=== PATIENT | female | born 1990 | race Caucasian/White ===

== ENCOUNTER 2016-10-08 11:38 | Emergency (ER) | payer MEDICAID, OTHER ==
[~2016-10-08] VITALS: Ht 167.6 cm; Wt 50.0 kg
[2016-10-08 11:39] VITALS: BP 135/75; PULSE 129; RESP 14; TEMP 98.3; O2SAT 99
[2016-10-08] MEDS ORDERED: SODIUM CHLOR 0.9% 1000 ML INJ 1,000 ML IV SCH (12:09)
[2016-10-08] MEDS ORDERED: LORazepam 2 MG/ML VIAL IV PUSH ONE (12:15)
[2016-10-08] MEDS ORDERED: SODIUM CHLORIDE 0.9% FLUSH 5 ML FLUSH IVF PRN (12:15)
[2016-10-08] MEDS ORDERED: CLINDAMYCIN INJ 900 MG in SODIUM CHLORIDE 0.9% INJ 100 ML IV ONE (12:15)
[2016-10-08 12:30] LABS: AUTOMATED NEUTROPHIL # 12.4 TH/MM3 (1.8-7.7); BASOPHIL # 0.1 TH/MM3 (0-0.2); BASOPHIL % 0.4 % (0.0-2.0); EOSINOPHIL # 0.2 TH/MM3 (0-0.4); EOSINOPHIL % 1.4 % (0.0-4.0); HEMATOCRIT 36.8 % (35.0-46.0); HEMO FLAGS DIFF FINAL; LYMPH % 20.6 % (9.0-44.0); LYMPHOCYTE # 3.6 TH/MM3 (1.0-4.8); MEAN CELL VOLUME 86.2 FL (80.0-100.0); MEAN CORPUSCULAR HEMOGLOBIN 29.2 PG (27.0-34.0); MEAN CORPUSCULAR HGB CONC 33.9 % (32.0-36.0); MONO % 6.2 % (0.0-8.0); NEUT % 71.4 % (16.0-70.0); PLATELET COUNT 343 TH/MM3 (150-450); RED BLOOD COUNT 4.27 MIL/MM3 (4.00-5.30); RED CELL DISTRIBUTION WIDTH 13.9 % (11.6-17.2); WHITE BLOOD COUNT 17.3 TH/MM3 (4.0-11.0)
--- NOTE | 2016-10-08 12:32 | PD ---
HPI Chief Complaint: Skin Problem Time Seen by Provider: 12:12 Travel History International Travel<30 days: No Contact w/Intl Traveler<30days: No Traveled to known affect area: No History of Present Illness HPI 26-year-old female with history of IV drug use comes in with 2 day history of right arm pain, swelling, and erythema. Patient abuses cocaine, heroin and hydromorphone IV. Patient denies fever, chills, or other constitutional symptoms. Patient was here about a month ago with similar concerns and presentation. Patient states the pain was worse this morning but she used cocaine and some hydromorphone this morning. Pain is now minimal. Patient was given a tetanus shot at that time. She has no known drug allergies. PFSH Past Medical History Anxiety: No Depression: No Cancer: No Cardiovascular Problems: No Endocrine: No Genitourinary: No Immune Disorder: No Implanted Vascular Access Dvce: No Musculoskeletal: No Neurologic: No Psychiatric: No Reproductive: No Respiratory: No Immunizations Current: Yes Seizures: Yes (withdrawl induced ) Influenza Vaccination: No ?: Not : 2 Para: 1 : 1 Past Surgical History Abdominal Surgery: Yes Section: Yes Other Surgery: Yes Social History Alcohol Use: No Tobacco Use: Yes (09/14 PPD) Substance Use: Yes (HEROIN, DILAUDID (iv drug abuser)) Allergies-Medications (Allergen,Severity, Reaction): Coded Allergies: No Known Allergies (Verified , 10/08/16) Reported Meds & Prescriptions Reported Meds & Active Scripts Active No Active Prescriptions or Reported Medications Review of Systems Except as stated in HPI: all other systems reviewed are Neg General / Constitutional: No: Fever Eyes: No: Visual changes HENT: No: Headaches Cardiovascular: No: Chest Pain or Discomfort Respiratory: No: Shortness of Breath Gastrointestinal: No: Abdominal Pain Genitourinary: No: Dysuria Musculoskeletal: No: Pain Skin: Positive Lesions (see history present illness.), No Rash Neurologic: No: Weakness Psychiatric: No: Depression Endocrine: No: Polydipsia Hematologic/Lymphatic: No: Easy Bruising Physical Exam Narrative GENERAL: Patient is anxious and jittery, but no acute distress. SKIN: Warm and dry. Patient has multiple puncture wounds to the right dorsal forearm consistent with her IV drug use history. There is lymphangitis and erythema along the volar surface of the right forearm, without signs of abscess or drainage. There is no significant lymphadenopathy in the epitrochlear or axillary nodes on the right. HEAD: Atraumatic. Normocephalic. EYES: Pupils equal and round. No scleral icterus. No injection or drainage. ENT: No nasal bleeding or discharge. Mucous membranes pink and moist. NECK: Trachea midline. No JVD. CARDIOVASCULAR: Regular rate and rhythm. RESPIRATORY: No accessory muscle use. Clear to auscultation. Breath sounds equal bilaterally. MUSCULOSKELETAL: Extremities without clubbing, cyanosis, or edema. No obvious deformities. NEUROLOGICAL: Awake and alert. No obvious cranial nerve deficits. Motor grossly within normal limits. Five out of 5 muscle strength in the arms and legs. Normal speech. PSYCHIATRIC: Appropriate mood and affect; insight and judgment normal. Data Data Last Documented VS Vital Signs Date Time Temp Pulse Resp B/P Pulse Ox O2 Delivery O2 Flow Rate FiO2 10/08/16 11:39 98.3 129 14 135/75 99 Room Air Orders Complete Blood Count With Diff (10/08/16 12:09) Blood Culture (10/08/16 12:09) Iv Access Insert/Monitor (10/08/16 12:09) Sodium Chloride 0.9% Flush (Ns Flush) (10/08/16 12:15) Clindamycin Inj (Cleocin Inj) (10/08/16 12:15) Comprehensive Metabolic Panel (10/08/16 12:09) Lactic Acid (10/08/16 12:09) Prothrombin Time / Inr (Pt) (10/08/16 12:09) Act Partial Throm Time (Ptt) (10/08/16 12:09) Urinalysis - C+S If Indicated (10/08/16 12:09) Sodium Chlor 0.9% 1000 Ml Inj (Ns 1000 M (10/08/16 12:09) Electrocardiogram (10/08/16 12:09) Ed Urine Pregnancytest Poc (10/08/16 12:09) Lorazepam Inj (Ativan Inj) (10/08/16 12:15) Urine Culture (10/08/16 12:48) Labs Laboratory Tests Test 10/08/16 10/08/16 12:16 12:48 White Blood Count 17.3 TH/MM3 Red Blood Count 4.27 MIL/MM3 Hemoglobin 12.5 GM/DL Hematocrit 36.8 % Mean Corpuscular Volume 86.2 FL Mean Corpuscular Hemoglobin 29.2 PG Mean Corpuscular Hemoglobin 33.9 % Concent Red Cell Distribution Width 13.9 % Platelet Count 343 TH/MM3 Mean Platelet Volume 7.3 FL Neutrophils (%) (Auto) 71.4 % Lymphocytes (%) (Auto) 20.6 % Monocytes (%) (Auto) 6.2 % Eosinophils (%) (Auto) 1.4 % Basophils (%) (Auto) 0.4 % Neutrophils # (Auto) 12.4 TH/MM3 Lymphocytes # (Auto) 3.6 TH/MM3 Monocytes # (Auto) 1.1 TH/MM3 Eosinophils # (Auto) 0.2 TH/MM3 Basophils # (Auto) 0.1 TH/MM3 CBC Comment DIFF FINAL Differential Comment Prothrombin Time 10.0 SEC Prothromb Time International 0.9 RATIO Ratio Activated Partial 35.6 SEC Thromboplast Time Sodium Level 134 MEQ/L Potassium Level 3.7 MEQ/L Chloride Level 100 MEQ/L Carbon Dioxide Level 26.6 MEQ/L Anion Gap 7 MEQ/L Blood Urea Nitrogen 8 MG/DL Creatinine 0.64 MG/DL Estimat Glomerular Filtration 111 ML/MIN Rate Random Glucose 84 MG/DL Lactic Acid Level 1.2 mmol/L Calcium Level 8.9 MG/DL Total Bilirubin 0.1 MG/DL Aspartate Amino Transf 14 U/L (AST/SGOT) Alanine Aminotransferase 23 U/L (ALT/SGPT) Alkaline Phosphatase 88 U/L Total Protein 7.6 GM/DL Albumin 3.4 GM/DL Urine Color YELLOW Urine Turbidity CLEAR Urine pH 6.0 Urine Specific [place] 1.010 Urine Protein NEG mg/dL Urine Glucose (UA) NEG mg/dL Urine Ketones NEG mg/dL Urine Occult Blood NEG Urine Nitrite POS Urine Bilirubin NEG Urine Urobilinogen LESS THAN 2.0 MG/DL Urine Leukocyte Esterase NEG Urine RBC LESS THAN 1 /hpf Urine WBC 3 /hpf Urine Squamous Epithelial 1 /hpf Cells Urine Bacteria MOD /hpf Microscopic Urinalysis Comment CULTURE INDICATED MDM Medical Decision Making Medical Screen Exam Complete: Yes Emergency Medical Condition: Yes Differential Diagnosis IV drug abuse. Vasculitis. Cellulitis. MRSA. Narrative Course Patient is felt to be medically stable at time of exam. Labs ordered including CBC, CMP, urine , lactic acid, blood cultures 2. IV access is obtained patient is given 900 mg of clindamycin IV. EKG is performed due to the patient's tachycardia. This shows sinus tachycardia without ST changes. This was reviewed with Dr. Hernandez. CBC shows a leukocytosis of 17.3. Lactic acid is normal. CMP is normal. Urine is negative. Blood cultures are pending. Patient felt stable to be discharged home on Bactrim DS twice a day 10 days. Patient is also take clindamycin 300 mg 4 times a day 10 days. Patient is to follow-up with her primary care physician or return to the emergency Department in 2 days for recheck. Patient is referred to the [facility] for drug rehabilitation. Patient may return to emergency department worsening symptoms specifically increased fever, pain, chills, or draining wounds. Diagnosis Primary Impression: IV drug abuse Additional Impression: Cellulitis of forearm, right Referrals: [facility] Patient Instructions: Cellulitis (ED), General Instructions Additional Instructions: Patient felt stable to be discharged home on Bactrim DS twice a day 10 days. Patient is also take clindamycin 300 mg 4 times a day 10 days. Patient is to follow-up with her primary care physician or return to the emergency Department in 2 days for recheck. Patient is referred to the [facility] for drug rehabilitation. Patient may return to emergency department worsening symptoms specifically increased fever, pain, chills, or draining wounds. Med/Other Pt SpecificInfo: Prescription(s) given Scripts Clindamycin (Cleocin)150 Mg Xst234 Mg PO Q6H 10 Days Prov:Amira Hernandez MD 10/08/16 Sulfamethoxazole-Trimethoprim (Bactrim DS)800-160 Mg Tab1 Tab PO BID #20 TAB Prov:Amira Hernandez MD 10/08/16 Disposition: DISCHARGE HOME Condition: Stable Constantin Isaac Oct 08, 2016 12:32
[2016-10-08 12:36] LABS: APTT (PATIENT) 35.6 SEC (24.3-30.1); INTERNATIONAL NORMALIZED RATIO 0.9 RATIO
[2016-10-08 12:42] LABS: ALT (GPT) 23 U/L (10-53); ANION GAP 7 MEQ/L (5-15); AST (GOT) 14 U/L (15-37); BICARBONATE 26.6 MEQ/L (21.0-32.0); BLOOD UREA NITROGEN 8 MG/DL (7-18); CHLORIDE 100 MEQ/L (98-107); GLOMERULAR FILTRATION RATE 111 ML/MIN (>89); POTASSIUM 3.7 MEQ/L (3.5-5.1); SODIUM (NA) 134 MEQ/L (136-145)
[2016-10-08 12:45] LABS: ALKALINE PHOSPHATASE 88 U/L (45-117); TOTAL BILIRUBIN ADULT 0.1 MG/DL (0.2-1.0)
[2016-10-08 13:15] LABS: BACTERIA, URINE MOD /hpf; BLOOD, URINE NEG (NEG); GLUCOSE,URINE NEG (NEG); KETONE, URINE NEG (NEG); SQUAMOUS EPITHELIAL CELL URINE 1 /hpf (0-5); URINE COLOR YELLOW (YELLW/STRAW)
[2016-10-08 13:18] LABS: NITRITE,URINE POS (NEG)
[2016-10-08 13:19] LABS: COMMENT (UR) CULTURE INDICATED; CULTURE IF INDICATED CULTURE INDICATED
[2016-10-08] MEDS ORDERED: BACT800T5 PO (13:55)
[2016-10-08] MEDS ORDERED: CLIN150 PO (13:55)
--- NOTE | 2016-10-09 16:54 | EKG ---
Date Performed: 10/08/2016 Time Performed: 12:28:18 PTAGE: 26 years EKG: SINUS TACHYCARDIA WITH SHORT AL INTERVAL ABNORMAL RHYTHM ECG PREVIOUS TRACING : 06/28/2015 09.51 Compared to prior tracing no significant change DOCTOR: Jorge Martinez Interpretating Date/Time 10/09/2016 16:54:01
== END 2016-10-08 14:10 | disposition home or self-care (01) ==
LOC: NEPC 11:38
DX: L03.113 Cellulitis of right upper limb (principal); F11.10 Opioid abuse, uncomplicated; N39.0 Urinary tract infection, site not specified; B96.20 Unspecified Escherichia coli [E. coli] as the cause of diseases classified elsewhere; R00.0 Tachycardia, unspecified
CPT/HCPCS: 80053; 81001; 83605; 84703; 85025; 85610; 85730; 87040; 87077; 87086; 87186; 93005; 96361; 96365; 96375; 99283; J2060; J7030

== ENCOUNTER 2017-12-24 20:05 | Emergency (ER) | payer SELFPAY ==
[~2017-12-24 20:05] MED LIST: BACT800T5 PO; CLIN150 PO
[2017-12-24 20:12] VITALS: BP 143/67; PULSE 122; RESP 20; TEMP 97.6; O2SAT 100
[2017-12-24] MEDS ORDERED: TETANUS/DIPHTHERIA TOXOID ADULT 0.5 ML VIAL IM ONE (20:30)
[2017-12-24] MEDS ORDERED: CLINDAMYCIN PHOS 300 MG/2 ML VIAL IM ONE (20:30)
[2017-12-24] MEDS ORDERED: DOXY100C PO (20:31)
[2017-12-24] MEDS ORDERED: BACT800T5 PO (20:31)
--- NOTE | 2017-12-24 20:33 | PD ---
HPI Chief Complaint: Skin Problem Time Seen by Provider: 20:20 Travel History International Travel<30 days: No Contact w/Intl Traveler<30days: No Traveled to known affect area: No History of Present Illness HPI Patient comes in complaining of a lump over her left hand, has been going on for the past 4 or 5 days. And then a lump on her right midforearm which is been there for the past 2 days. Patient denies any fever, chills, nausea vomiting diarrhea abdominal pain back pain flank pain or chest pain. Patient has no known drug allergy Past medical history significant for withdrawal seizures, , , patient is a opiate abuser including heroin and Dilaudid nearly daily, smokes half a pack a day daily. PFSH Past Medical History Anxiety: No Depression: No Cancer: No Cardiovascular Problems: No Endocrine: No Genitourinary: No Immune Disorder: No Implanted Vascular Access Dvce: No Musculoskeletal: No Neurologic: No Psychiatric: No Reproductive: No Respiratory: No Immunizations Current: Yes Seizures: Yes (withdrawl induced ) : 2 Para: 1 : 1 Past Surgical History Abdominal Surgery: Yes Section: Yes Other Surgery: Yes Social History Alcohol Use: No Tobacco Use: Yes (/2 PPD) Substance Use: Yes (HEROIN, DILAUDID (iv drug abuser)) Allergies-Medications (Allergen,Severity, Reaction): Coded Allergies: No Known Allergies (Verified , 10/08/16) Reported Meds & Prescriptions Reported Meds & Active Scripts Active Cleocin (Clindamycin HCl) 150 Mg Cap 300 Mg PO Q6H 10 Days Bactrim DS (Sulfamethoxazole-Trimethoprim) 800-160 Mg Tab 1 Tab PO BID Review of Systems General / Constitutional: No: Fever Eyes: No: Visual changes HENT: No: Headaches Cardiovascular: No: Chest Pain or Discomfort Respiratory: No: Shortness of Breath Gastrointestinal: No: Abdominal Pain Genitourinary: No: Dysuria Musculoskeletal: No: Pain Skin: Positive Lumps Neurologic: No: Weakness Psychiatric: No: Depression Endocrine: No: Polydipsia Hematologic/Lymphatic: No: Easy Bruising Physical Exam Narrative GENERAL: SKIN: Warm and dry. Dorsum of left hand is has a area of about 3 cm wide, fluctuant and erythematous and warm to touch. Right mid forearm on the mid ulnar aspect has an area approximately 2 cm nonfluctuant/indurated, minimal erythema no warmth no streaking HEAD: Atraumatic. Normocephalic. EYES: Pupils equal and round. No scleral icterus. No injection or drainage. ENT: No nasal bleeding or discharge. Mucous membranes pink and moist. NECK: Trachea midline. No JVD. CARDIOVASCULAR: Regular rate and rhythm. No murmur RESPIRATORY: No accessory muscle use. Clear to auscultation. Breath sounds equal bilaterally. GASTROINTESTINAL: Abdomen soft, non-tender, nondistended. MUSCULOSKELETAL: Extremities without clubbing, cyanosis, or edema. No obvious deformities. NEUROLOGICAL: Awake and alert. No obvious cranial nerve deficits. Motor grossly within normal limits. Five out of 5 muscle strength in the arms and legs. Normal speech. PSYCHIATRIC: Appropriate mood and affect; insight and judgment normal. Data Data Last Documented VS Vital Signs Date Time Temp Pulse Resp B/P (MAP) Pulse Ox O2 Delivery O2 Flow Rate FiO2 12/24/17 20:12 97.6 122 20 143/67 (92) 100 Orders Orders Tetanus/Diphtheria Tox Adult (Tetanus/Di (12/24/17 20:30) Clindamycin Inj (Cleocin Inj) (12/24/17 20:30) MDM Medical Decision Making Medical Screen Exam Complete: Yes Emergency Medical Condition: Yes Medical Record Reviewed: Yes Differential Diagnosis Cellulitis versus abscess versus lymphangitis Narrative Course The patient does not have any cardiac murmur Procedures Procedure Narrative After the risks and benefits were discussed the following procedure was performed: INCISION AND DRAINAGE OF ABSCESS: The area was prepped and was sterilely draped. A subcutaneous wheal of [1] % Xylocaine with a total number [1] mL was used to anesthetize the area. The area was properly anesthetized. A number [11] scalpel was used to make a [1] -cm incision across the area of the abscess. Cultures were obtained. The abscess was drained an irrigated with normal saline. Quarter inch iodoform packing was not placed in the wound due to the small cavity size. Sterile dressing applied. Diagnosis Primary Impression: Abscesses dorsum of left hand Additional Impression: Right mid forearm cellulitis Patient Instructions: Cellulitis (ED), General Instructions Scripts Doxycycline Hyclate (Doxycycline Hyclate) 100 Mg Cap 100 MG PO BID for Infection, #20 CAP 0 Refills Prov: Gigi Simms MD 12/24/17 Sulfamethoxazole-Trimethoprim (Bactrim DS) 800-160 Mg Tab 1 TAB PO BID for Infection, #20 TAB 0 Refills Prov: Gigi Simms MD 12/24/17 Disposition: 01 DISCHARGE HOME Condition: Stable Gigi Simms MD Dec 24, 2017 20:33
[2017-12-24] MEDS ORDERED: CLINDAMYCIN PHOS 600 MG/4 ML VIAL IM ONE (20:45)
[2017-12-24 21:43] VITALS: BP 131/58
== END 2017-12-24 21:51 | disposition home or self-care (01) ==
LOC: PHED 20:05
DX: L02.512 Cutaneous abscess of left hand (principal); L03.113 Cellulitis of right upper limb; F17.210 Nicotine dependence, cigarettes, uncomplicated; Z23 Encounter for immunization
CPT/HCPCS: 10060; 90471; 90714; 96372

== ENCOUNTER 2018-01-28 00:20 | Emergency (ER) | END 2018-01-28 01:45 | disposition home or self-care (01) | DX: L03.115 Cellulitis of right lower limb (principal); L03.114 Cellulitis of left upper limb; F17.200 Nicotine dependence, unspecified, uncomplicated ==